=== PATIENT | female | born 1990 | race Caucasian/White ===

== ENCOUNTER 2017-02-22 00:43 | Emergency (ER) | payer OTHER ==
--- NOTE | ~2017-02-22 | CR90 ---
[facility]. [facility] A Service of [facility] & [facility] RADIOLOGY TEXT RESULTS PATIENT: JADEN WALLACE LOCATION: SED : 88 UNIT #: [id number] AGE: [address]: Tr Estrella MD SEX: F ORDER DR: [id number] [address] [address] [id number] MR#: [id number] Acc #: [id number] NAME: JADEN WALLACE : 1990 SEX: F STUDY DATE/TIME: 02/22/2017 1:03 UNIT: SED ROOM: STUDY DESCRIPTION: CR Elbow 2 View Lt Attending Physician: Tr Estrella M.D. Ordering Physician: Tr Estrella M.D. Primary Care Physician: Primary Care Physician No MEDICAL IMAGING REPORT This report is preliminary unless electronic signature is present. EXAM Left elbow 2 views HISTORY Possible foreign body. Needle Broke off in left arm tonight. FINDINGS Two views of the left elbow demonstrates approximately 7-mm needle fragment within the antecubital soft tissues. There is a small amount of soft tissue gas. No underlying osseous abnormality. No joint effusion. Dictated by... Shravan Campos M.D. THIS IS AN ELECTRONICALLY VERIFIED REPORT Shravan Campos M.D. at 02/22/2017 9:59 PM Neda TD: 02/22/2017 09:32 JOB #: [id number] MEDICAL IMAGING REPORT Page 1 of 1
[~2017-02-22 00:43] MED LIST: ALBUTEROL17 GM INH; AMOXICILLIN PO; AMOXIL500 M1 PO; ANAPROX DS550 M1 PO; BACTRIM DS TABL1 TA1 PO; CIPRO PO; IBUPROFEN800 MG PO; LORTAB 5/500 TA1 TA1 PO; MIRENA IUD; NO MEDICATIONS; PEN-VEE K PO; PHENERGAN12.5 MG DOB; PHENERGAN25 MG PO; PRENATAL MULITV1 TAB PO; PRILOSEC20 M1 PO; PYRIDIUM PO; TYLENOL #3 PO; ULTRAM PO; VOLTAREN50 MG PO
== END 2017-02-22 01:57 | disposition home or self-care (01) ==
LOC: SED 00:43
DX: S51.042A Puncture wound with foreign body of left elbow, initial encounter (principal); W45.8XXA Other foreign body or object entering through skin, initial encounter; Y92.009 Unspecified place in unspecified non-institutional (private) residence as the place of occurrence of the external cause
CPT/HCPCS: 73070; 99283; 99284